=== PATIENT | male | born 1975 | race Caucasian/White ===

== ENCOUNTER 2019-11-26 13:17 | Outpatient (CLI) | payer OTHER, SELFPAY ==
--- NOTE | 2019-11-26 12:55 | DI.RAD_ITS ---
EXAM: XR RIBS ONLY LT INDICATION: Acute chest wall pain, R07.89. COMPARISON: No exams were available for comparison TECHNIQUE: 2D digital imaging was performed. Two views were performed. FINDINGS: A marker was placed over the lower lateral left ribs in the area of the patient's pain. No rib fract ure is identified. The left shoulder and AC joint appear intact. Heart size is normal. The left michael ng appears clear. IMPRESSION: Negative left ribs.
== END 2019-11-26 13:37 ==
PROVIDERS: Visit Provider Nurse Practitioner Family
DX: R07.89 Other chest pain (principal); R07.81 Pleurodynia
CPT/HCPCS: 71100